=== PATIENT | male | born 1985 | race Caucasian/White ===

== ENCOUNTER 2018-04-19 17:34 | Observation (INO) | payer BC ==
[~2018-04-19] VITALS: Ht 175.3 cm; Wt 77.0 kg
[~2018-04-19 17:34] MED LIST: Bactrim Ds Tab1 EACH PO; HYDACE5 PO; HYDR1TAB94 PO; IBUP600; Naprosyn500 MG PO; Norco 5-325 Ta1 EACH PO; OXYACE5T; PROM25 PO; RXANTBENOT AS; RXNEOPOLHC AS; Sulindac200 MG PO
[2018-04-19 18:48] LABS: BASOPHILS ABSOLUTE AUTO 0.09 K/mm3 (0.00-0.23); BASOPHILS PERCENT AUTO 1 % (0-2); EOSINOPHILS ABSOLUTE AUTO 0.07 K/mm3 (0.00-0.68); EOSINOPHILS PERCENT AUTO 1 % (0-6); Hematocrit 40.9 % (37.0-53.0); Hemoglobin 13.5 g/dL (13.5-17.5); IMMATURE GRAN ABSOLUTE AUTO 0.04 K/mm3 (0.00-0.10); IMMATURE GRAN PERCENT AUTO 0 % (0-1); LYMPHOCYTES ABSOLUTE AUTO 4.93 K/mm3 (0.84-5.20); LYMPHOCYTES PERCENT AUTO 46 % (21-46); MONOCYTES ABSOLUTE AUTO 0.73 K/mm3 (0.16-1.47); MONOCYTES PERCENT AUTO 7 % (4-13); Mean Corpuscular HGB 30.6 pg (26.0-34.0); Mean Corpuscular Volume 93 fL (80-100); Mean Platelet Volume 10.9 fL (9.1-12.4); NEUTROPHILS ABSOLUTE AUTO 4.77 K/mm3 (1.96-9.15); NEUTROPHILS PERCENT AUTO 45 % (41-73); Platelet Count 276 K/mm3 (150-400); RDW Coefficient Variation 13.2 % (11.7-14.2); RDW Standard Deviation 44.9 fL (35.1-46.3); Red Blood Cell Count 4.41 M/mm3 (4.30-5.90); White Blood Cell Count 10.63 K/mm3 (4.00-11.30)
[2018-04-19 19:00] LABS: Alanine Aminotransfer (ALT/SGP 28 U/L (12-78); Albumin, Blood 4.2 g/dL (3.4-5.0); Albumin/Globulin Ratio 1.2 (0.8-1.8); Alk Phos 81 U/L (50-136); Anion Gap 11 mmol/L (6-16); Aspartate Aminotrans (AST/SGOT 25 U/L (12-37); Bilirubin, Total 0.3 mg/dL (0.1-1.0); Blood Urea Nitrogen 18 mg/dL (8-24); Bun/Creatinine Ratio 15.5 (12.0-20.0); CO2, Blood 20 mmol/L (21-32); Calcium, Blood 8.4 mg/dL (8.5-10.1); Chloride, Blood 113 mmol/L (98-108); Creatinine, Blood 1.16 mg/dL (0.60-1.20); Globulin, Blood 3.4 g/dL (2.2-4.0); Glomerular Filtration Rate >60 (60-); Glucose, Blood 120 mg/dL (70-99); Potassium, Blood 4.4 mmol/L (3.5-5.5); Sodium, Blood 144 mmol/L (136-145); Total Protein, Blood 7.6 g/dL (6.4-8.2)
[2018-04-21] MEDS ORDERED: OXYC5 PO (13:59)
[2018-04-21] MEDS ORDERED: ACET500 PO (14:29)
[2018-04-26] MEDS ORDERED: OXYC10TA19 PO (11:50)
== END 2018-04-21 14:45 | disposition home or self-care (01) ==
LOC: ER 17:34 → SURS 17:35
PROVIDERS: Internal Medicine
PROC: 0PSHXZZ Reposition Right Radius, External Approach (ICD-10-PCS; principal; 2018-04-19)
DX: S52.501A Unspecified fracture of the lower end of right radius, initial encounter for closed fracture (principal); S92.001A Unspecified fracture of right calcaneus, initial encounter for closed fracture; W13.2XXA Fall from, out of or through roof, initial encounter
CPT/HCPCS: 25605; 29515; 36415; 71250; 73030; 73090; 73100; 73610; 73700; 74176; 80053; 85025; 96361; 96374; 96375; 96376; 99152; 99285-25; G0378; J2405; J3010; J7030; J7042; J7120

== ENCOUNTER 2018-04-27 09:23 | Day surgery (SDC) | payer BC ==
[~2018-04-27 09:23] MED LIST changes: +ACET500 PO; +OXYC10TA19 PO; +OXYC5 PO
== END 2018-04-27 14:24 | disposition home or self-care (01) ==
LOC: ORSCMMR 09:23 → ORD 11:15 → ORSCMMR 11:15
PROVIDERS: Orthopaedic Surgery
PROC: 0PSH04Z Reposition Right Radius with Internal Fixation Device, Open Approach (ICD-10-PCS; principal; 2018-04-27 10:00)
DX: S52.571A Other intraarticular fracture of lower end of right radius, initial encounter for closed fracture (principal); W13.2XXA Fall from, out of or through roof, initial encounter
CPT/HCPCS: 73100; C1713; J0171; J0690; J1885; J2250; J2405; J3010; J7120

== ENCOUNTER 2018-04-28 09:51 | Day surgery (SDC) | payer BC ==
[~2018-04-28] VITALS: Ht 175.3 cm; Wt 74.3 kg
== END 2018-04-28 16:10 | disposition home or self-care (01) ==
LOC: ORSCSDS 09:51
PROVIDERS: Podiatrist Foot & Ankle Surgery
PROC: 0QSL04Z Reposition Right Tarsal with Internal Fixation Device, Open Approach (ICD-10-PCS; principal; 2018-04-28 11:45)
DX: S92.001A Unspecified fracture of right calcaneus, initial encounter for closed fracture (principal)
CPT/HCPCS: C1713; J0171; J0690; J1100; J1885; J2250; J2405; J3010; J7120

== ENCOUNTER 2024-09-19 17:21 | Observation (INO) | payer BC ==
[~2024-09-19] VITALS: Ht 175.3 cm; Wt 76.9 kg
[2024-09-19 18:28] LABS: BASOPHILS ABSOLUTE AUTO 0.09 K/mm3 (0.00-0.23); BASOPHILS PERCENT AUTO 1 % (0-2); EOSINOPHILS ABSOLUTE AUTO 0.02 K/mm3 (0.00-0.68); EOSINOPHILS PERCENT AUTO 0 % (0-6); Hematocrit 41.4 % (37.0-53.0); Hemoglobin 13.7 g/dL (13.5-17.5); IMMATURE GRAN ABSOLUTE AUTO 0.01 K/mm3 (0.00-0.10); IMMATURE GRAN PERCENT AUTO 0 % (0-1); LYMPHOCYTES ABSOLUTE AUTO 2.15 K/mm3 (0.84-5.20); LYMPHOCYTES PERCENT AUTO 27 % (21-46); MONOCYTES ABSOLUTE AUTO 0.79 K/mm3 (0.16-1.47); MONOCYTES PERCENT AUTO 10 % (4-13); Mean Corpuscular HGB 30.4 pg (26.0-34.0); Mean Corpuscular HGB Conc 33.1 g/dL (31.5-36.5); Mean Corpuscular Volume 92 fL (80-100); Mean Platelet Volume 10.6 fL (9.1-12.4); NEUTROPHILS PERCENT AUTO 62 % (41-73); Platelet Count 279 K/mm3 (150-400); RDW Coefficient Variation 13.2 % (11.7-14.2); RDW Standard Deviation 44.4 fL (35.1-46.3); White Blood Cell Count 8.06 K/mm3 (4.00-11.30)
[2024-09-19 18:45] LABS: Albumin, Blood 4.4 g/dL (3.4-5.0); Albumin/Globulin Ratio 1.3 (0.8-1.8); Bilirubin, Total 0.5 mg/dL (0.1-1.0); Bun/Creatinine Ratio 12.2 (12.0-20.0); Calcium, Blood 9.2 mg/dL (8.5-10.1); Creatinine, Blood 0.98 mg/dL (0.60-1.20); Globulin, Blood 3.3 g/dL (2.2-4.0); Potassium, Blood 4.7 mmol/L (3.5-5.5); Total Protein, Blood 7.7 g/dL (6.4-8.2)
[2024-09-19] MEDS ORDERED: Prochlorperazine Edisylate 10 mg Vial IV ONE (22:45)
[2024-09-19] MEDS ORDERED: DiphenhydrAMINE HCl 50 MG/ML 1ML Vial IV ONE (22:45)
[2024-09-20] MEDS ORDERED: FLU VACC TS2024-25(6MOS UP)/PF 45 MCG/0.5 ML SYRINGE IM ONE (00:55)
[2024-09-20] MEDS ORDERED: Prochlorperazine Edisylate 10 mg Vial IV PRN (00:55)
[2024-09-20] MEDS ORDERED: Ondansetron HCl 2 MG / ML 2ML Vial IV PRN (00:55)
[2024-09-20 01:46] VITALS: BP 153/103
[2024-09-20] MEDS ORDERED: Acetaminophen 325 MG TABLET PO PRN (02:00)
[2024-09-20] MEDS ORDERED: MULVITA PO (02:02)
[2024-09-20] MEDS ORDERED: Ketorolac Tromethamine 15mg Vial IV ONE (02:05)
[2024-09-20] MEDS ORDERED: MAGNESIUM OXID500 MG PO (02:05)
--- NOTE | 2024-09-20 02:52 | NUR ---
SHIFT SUMMARY PT ARRIVED TO MEDICAL FLOOR RM#[id number] @0140. PT TRANSFERRED W/O ASSISTANCE FROM W/C TO HOSPITAL BED. CARLOS BY THE BEDSIDE. DR. JOHNSON BY THE BEDSIDE @0150. NEURO CHECKS COMPLETED BY CHARGE NURSE YUMIKO AND . PT REPORTS BLURRY VISION ON RIGHT EYE. PT REPORTS H/A 4/10 ON THE RIGHT SIDE OF THE HEAD, RADIATING TO BACK/NECK. PT REPORTS NUMBNESS ON THE BOTTOM OF HIS FEET BILATERALLY. ONE TIME DOSE OF TORADOL 15MG IV ADMINISTERED ORDERED PER DR. JOHNSON. CHARGE NURSE YUMIKO COMPLETED THE ADMISSION ASSESSMENT, SKIN CHECK WITH THIS MOVIE EDITOR. PT IS A&O X4, ABLE TO MAKE HIS NEEDS KNOWN, AND COOPERATIVE WITH CARE. PT AMBULATES INDEPENDENTLY/SBA. PT REPORTS NO HOME MEDS. NKA. PT REPORTS TAKES MULTIVITAMIN DAILY, AND MAGNESIUM SUPPLEMENT DAILY. ADDED TO MEDICATION RECONCILIATION BY THIS MOVIE EDITOR. PT'S BP 153/103,P.75. PT IS ON RA 99%. IV IN RAC. PT IS ON TELE: SINUS ENRIQUE. PT REPORTS HX OF A FALL YEARS AGO, HX OF SURGERY AND TITANIUM PLATES ON RIGHT HEEL AND RIGHT WRIST. PT WAS EDUCATED SHIFT PRODUCTION SUPERVISOR LIGHT. PT RESTING AWAKE IN BED. IS COMING BACK TO THE HOSPITAL FOR THE NIGHT. BED AT THE LOWEST POSITION, CALL LIGHT WITHIN REACH. URINAL BY THE BEDSIDE.
[2024-09-20 05:08] LABS: BASOPHILS ABSOLUTE AUTO 0.08 K/mm3 (0.00-0.23); BASOPHILS PERCENT AUTO 1 % (0-2); EOSINOPHILS ABSOLUTE AUTO 0.06 K/mm3 (0.00-0.68); EOSINOPHILS PERCENT AUTO 1 % (0-6); Hematocrit 39.5 % (37.0-53.0); Hemoglobin 13.3 g/dL (13.5-17.5); IMMATURE GRAN ABSOLUTE AUTO 0.01 K/mm3 (0.00-0.10); IMMATURE GRAN PERCENT AUTO 0 % (0-1); LYMPHOCYTES ABSOLUTE AUTO 3.48 K/mm3 (0.84-5.20); LYMPHOCYTES PERCENT AUTO 42 % (21-46); MONOCYTES ABSOLUTE AUTO 0.96 K/mm3 (0.16-1.47); MONOCYTES PERCENT AUTO 12 % (4-13); Mean Corpuscular HGB 30.9 pg (26.0-34.0); Mean Corpuscular HGB Conc 33.7 g/dL (31.5-36.5); Mean Corpuscular Volume 92 fL (80-100); Mean Platelet Volume 11.2 fL (9.1-12.4); NEUTROPHILS ABSOLUTE AUTO 3.73 K/mm3 (1.96-9.15); NEUTROPHILS PERCENT AUTO 45 % (41-73); Platelet Count 251 K/mm3 (150-400); RDW Coefficient Variation 13.2 % (11.7-14.2); RDW Standard Deviation 44.5 fL (35.1-46.3); White Blood Cell Count 8.32 K/mm3 (4.00-11.30)
[2024-09-20 05:45] LABS: Albumin, Blood 3.8 g/dL (3.4-5.0); Albumin/Globulin Ratio 1.2 (0.8-1.8); Bilirubin, Total 0.6 mg/dL (0.1-1.0); Creatinine, Blood 0.91 mg/dL (0.60-1.20); Globulin, Blood 3.2 g/dL (2.2-4.0); Potassium, Blood 4.7 mmol/L (3.5-5.5)
--- NOTE | 2024-09-20 07:12 | NUR ---
ASSUMED CARE OF PATIENT AFTER RECEIVING REPORT FROM OFFGOING NURSE, JOLLY. PATIENT LYING BED; , CARLOS, ON COMPAINION BED AT BEDSIDE. QUESTION RE: TIME OF MRI. UNSURE OF TIME BUT WILL NOTIFY THEM ONCE IMAGING NOTIFIES THIS RN. CONTINUES TO C/O PARESTHESIA BOTTOMS BILATERAL FEET WITHOUT BURNING OR PAIN. SLIGHT DROOP NOTED TO RIGHT EYE AND MODERATE TO SEVERE ORAL DROOP NOTED UPON SMILE.
[2024-09-20 07:59] VITALS: BP 138/98
--- NOTE | 2024-09-20 08:04 | NUR ---
SPOKE WITH RADHA IN MRI: PATIENT SCHEDULED FOR 11:30/11:45 FOR MRI. DOES NOT NEED TO BE FASTING. TRANPSORTATION BY WHEELCHAIR.
[2024-09-20] MEDS ORDERED: ValACYClovir HCL 500 MG Tab PO SCH (11:30)
[2024-09-20] MEDS ORDERED: PredniSONE 20 MG Tab PO SCH (12:00)
[2024-09-20] MEDS ORDERED: Prednisone20 MG PO (12:33)
[2024-09-20] MEDS ORDERED: VALACYCLOVIR1000 MG PO (12:34)
--- NOTE | 2024-09-20 13:22 | NUR ---
DISCHARGE SUMMARY: A&Ox4. PLEASANT AND COOPERATIVE WITH CARE. CALLS APPROPRIATELY AND IS ABLE TO ADVOCATE NEEDS EFFECTIVELY. AMBULATES INDEPENDENTLY. CONTINENT OF BOWEL AND BLADDER. LBM YESTERDAY. MEDS WHOLE WITH FLUIDS. TELE SINUS IN 50s. HEADACHE RESOLVED. MRI SHOWED NO ACUTE ABNORMALITIES. MEDICATIONS FAXED TO [facility]. INSTRUCTED TO FOLLOW-UP WITH DORI SEXTON FOR [id number]. LEFT FLOOR AT 1320 WITH ALL BELONGINGS AND DISCHARGE PACKET, ESCORTED BY . TRANSPORTATION PROVIDED BY , CARLOS.
== END 2024-09-20 13:33 | disposition home or self-care (01) ==
LOC: ER 17:21 → MEDS 17:22 → ERHOLD 09-20 00:52 → ER 09-20 00:52 → ERHOLD 09-20 01:44 → MEDS 09-20 01:44
PROVIDERS: Student in an Organized Health Care Education/Training Program; ADMIT Student in an Organized Health Care Education/Training Program
DX: G51.0 Bell's palsy (principal); I10 Essential (primary) hypertension; Z91.038 Other insect allergy status
CPT/HCPCS: 36415; 70450; 70496; 70498; 70553; 80053; 83735; 85025; 85651; 86140; 93005; 93010; 96374-59; 96375; 96375-59; 99285-25; A9270; A9579; G0378; J0780; J1200; J1885; J7512; Q9967